=== PATIENT | male | born 1930 | race Caucasian/White ===

== ENCOUNTER 2017-08-28 06:12 | Day surgery (SDC) | payer MEDICARE, BC ==
[2017-08-28] VITALS (9 sets, daily range): BP systolic 122–144; BP diastolic 67–77; PULSE 68–78; TEMP 97.2–97.9
[~2017-08-28] VITALS: Ht 180.3 cm; Wt 88.5 kg
[2017-08-28] MEDS ORDERED: ZOCOR 20MG20 MG PO (08:54)
[2017-08-28] MEDS ORDERED: PRILOSEC 20MG20 MG PO (08:55)
[2017-08-28] MEDS ORDERED: LEVOXYL0.05 MG PO (08:55)
[2017-08-28] MEDS ORDERED: ENTRESTO 49 MG1 EACH PO (08:56)
[2017-08-28] MEDS ORDERED: K-DUR 10 MEQ T10 MEQ PO (08:57)
[2017-08-28] MEDS ORDERED: CEPHALEXIN500 M1 PO (08:58)
[2017-08-28] MEDS ORDERED: PLAVIX 75MG TAB75 MG PO (08:58)
[2017-08-28] MEDS ORDERED: LASIX 40MG TABL40 MG PO (08:59)
[2017-08-28] MEDS ORDERED: LOPRESSOR 550 MG/TAB PO (09:00)
[2017-08-28] MEDS ORDERED: ADVIL200 MG PO (09:00)
[2017-08-28] MEDS ORDERED: MULTIPLE VITAMI1 CAP PO (09:01)
[2017-08-28] MEDS ORDERED: AMOXICILLIN 50500 MG PO (13:46)
[2017-08-28] MEDS ORDERED: NORCO 325 MG-51 TAB PO (13:47)
== END 2017-08-28 14:34 | disposition home or self-care (01) ==
LOC: SDCO 06:12
DX: L02.512 Cutaneous abscess of left hand (principal); S60.552A Superficial foreign body of left hand, initial encounter
CPT/HCPCS: J0690; J1885; J2270; J2405; J2704; J3010

== ENCOUNTER → 2019-04-02 | Outpatient (CLI) | payer MEDICARE, BC ==
[~2019-04-02] MED LIST: ADVIL200 MG PO; AMOXICILLIN 50500 MG PO; CEPHALEXIN500 M1 PO; ENTRESTO 49 MG1 EACH PO; K-DUR 10 MEQ T10 MEQ PO; LASIX 40MG TABL40 MG PO; LEVOXYL0.05 MG PO; LOPRESSOR 550 MG/TAB PO; MULTIPLE VITAMI1 CAP PO; NORCO 325 MG-51 TAB PO; PLAVIX 75MG TAB75 MG PO; PRILOSEC 20MG20 MG PO; ZOCOR 20MG20 MG PO
== END ==
LOC: COL.PUL 11:00
DX: R06.02 Shortness of breath (principal)

== ENCOUNTER 2020-04-14 11:30 | Observation (INO) | payer MEDICARE, BC ==
[~2020-04-14] VITALS: Ht 180.3 cm; Wt 88.5 kg
[2020-04-14 13:46] VITALS: BP 128/38; PULSE 99; TEMP 98.1
--- NOTE | 2020-04-14 14:18 | NUR ---
PT ARRIVED TO THE FLOOR VIA DIRECT. PT WAS IN THE BATHROOM. ASSESSMENT COMPLETED. PT HAS NO WANTS OR NEEDS AT THIS TIME. PT HAS NO C/O PAIN. PT IS ON 2L O2 AT THIS TIME. VSS. WILL CONTINUE TO MONITOR.
[2020-04-14 15:45] LABS: CREATININE, serum 1.09 (0.66-1.25); MAGNESIUM 2.1 mg/dL (1.6-2.3); POTASSIUM 4.3 mmol/L (3.4-5.0)
[2020-04-14 15:53] LABS: BASO % 0.4 % (0.0-2.0); EOS # 0.2 (0.0-0.7); EOS % 2.5 % (0-4.0); GRAN % 73.9 % (42.2-75.2); HEMATOCRIT 42.8 % (42.0-52.0); HEMOGLOBIN 13.4 g/dl (13.5-18.0); LYMPH # 0.8 (1.2-3.4); LYMPH % 11.5 % (20.0-51.0); MEAN CELL VOLUME 101 fl (80.0-100.0); MEAN CORPUSCULAR HEMOGLOBIN 32 pg (27.0-31.0); MEAN CORPUSCULAR HGB CONC 31 g/dl (33.0-37.0); MEAN PLATELET VOLUME 11.5 fl (7.4-10.4); MONO # 0.8 (0.1-0.6); MONO % 11.4 % (1.7-9.3); PLATELET COUNT 169 K/mm3 (130-400); RED BLOOD COUNT 4.22 M/mm3 (4.20-5.60); REDCELL DISTRIBUTION WIDTH-CV 15.6 % (11.5-14.5)
[2020-04-14 16:02] LABS: TROPONIN-I 0.05 ng/mL (0.000-0.035)
[2020-04-14 16:03] LABS: INR 1.6 (0.8-3.0); PROTHROMBIN TIME 18.1 SECONDS (9.7-12.8)
[2020-04-14 16:15] LABS: THYROID STIMULATING HORMONE 2.11 uIU/mL (0.465-4.680)
[2020-04-14 16:34] VITALS: BP 115/65; PULSE 106; TEMP 98.5
--- NOTE | 2020-04-14 20:37 | NUR ---
REPORT GIVEN TO KAL PENA. PT RETURNED FROM [facility] AT 1855, PT VSS, REPORTS NO PAIN OR DISCOMFORT. PT WILL BE RETURNING TO [facility] TOMORROW MORNING AT 0900. NO FURTHER CONCERNS.
[2020-04-14 20:59] VITALS: BP 109/58; PULSE 90; TEMP 97.9
[2020-04-14 23:12] VITALS: BP 112/59; PULSE 90; TEMP 97.6
[2020-04-15 04:07] VITALS: BP 110/67; PULSE 77; TEMP 97.5
--- NOTE | 2020-04-15 06:00 | NUR ---
PATIENT HAS HAD AN UNEVENTFUL NIGHT. PATIENT SLEPT THROUGH THE NIGHT WITHOUT DIFFICULTIES. PATIENT IS ABLE TO USE THE URINAL IN THE BED AND HANDLED THAT FAIRLY WELL. PATIENT HAS DENIED ANY OTHER NEEDS. WILL REPORT OFF TO DAY SHIFT UPON THEIR ARRIVAL
[2020-04-15 07:43] VITALS: BP 125/63; PULSE 82; TEMP 97.3
--- NOTE | 2020-04-15 09:00 | NUR ---
Attempted to reach Dr. Fabian to clarify Eliquis dosage. No answer- will try again. Report given to nurse at [facility]. Patient dismissed per w/c van back to [place] with adoption social worker.
--- NOTE | 2020-04-15 10:45 | NUR ---
Reached Dr. Fabian per phone about Eliquis dose. Stated he will talk with [facility] to clarify dose.
--- NOTE | 2020-04-15 12:40 | NUR ---
KAL Pop at alf confirmed that Dr. Fabian talked with them.
== END 2020-04-15 09:00 ==
LOC: MEDICAL 11:30
PROVIDERS: ADMIT Internal Medicine Interventional Cardiology
DX: I48.91 Unspecified atrial fibrillation (principal); Z53.09 Procedure and treatment not carried out because of other contraindication; I51.3 Intracardiac thrombosis, not elsewhere classified; I11.0 Hypertensive heart disease with heart failure; I50.42 Chronic combined systolic (congestive) and diastolic (congestive) heart failure; E78.5 Hyperlipidemia, unspecified; I25.10 Atherosclerotic heart disease of native coronary artery without angina pectoris; I42.9 Cardiomyopathy, unspecified; Z66 Do not resuscitate; Z95.5 Presence of coronary angioplasty implant and graft; Z87.891 Personal history of nicotine dependence; Z95.810 Presence of automatic (implantable) cardiac defibrillator; Z79.02 Long term (current) use of antithrombotics/antiplatelets; Z79.899 Other long term (current) drug therapy
CPT/HCPCS: J2704

== ENCOUNTER 2020-05-05 13:08 | Day surgery (SDC) | payer MEDICARE, BC ==
[2020-05-05] VITALS (7 sets, daily range): BP systolic 111–128; BP diastolic 57–85; PULSE 62–80; TEMP 98.5
[~2020-05-05] VITALS: Ht 180.3 cm; Wt 79.4 kg
[2020-05-05 14:43] LABS: INR 3.5 (0.8-3.0); PROTHROMBIN TIME 39.1 SECONDS (9.7-12.8)
[2020-05-05 14:50] LABS: POTASSIUM 4.5 mmol/L (3.4-5.0)
[2020-05-05] MEDS ORDERED: TOPROL XL100 MG PO (15:23)
[2020-05-05] MEDS ORDERED: PROTONIX20 MG PO (15:24)
[2020-05-05] MEDS ORDERED: LIPITOR 10MG10 MG PO (15:24)
[2020-05-05 15:25] LABS: THYROID STIMULATING HORMONE 1.86 uIU/mL (0.465-4.680)
[2020-05-05] MEDS ORDERED: REMERON 15M15 MG/TA1 PO (15:25)
[2020-05-05] MEDS ORDERED: ELIQUIS 5MG PO ×2 (15:26→15:29)
[2020-05-05] MEDS ORDERED: ENTRESTO 97 MG1 EACH PO (15:26)
--- NOTE | 2020-05-05 16:00 | NUR ---
Report from Elvia BOWDEN. Transferred back from laboratory phlebotomist by bed. Sleeping at this time. VSS.
--- NOTE | 2020-05-05 17:15 | NUR ---
INT discontinued intact. Assisted to bathroom by jatin.
--- NOTE | 2020-05-05 17:45 | NUR ---
Transferred to transportation and report given to his nurse Anastacia by wc
== END 2020-05-05 17:45 | disposition home or self-care (01) ==
LOC: COL.CAR 13:08
PROVIDERS: Internal Medicine Interventional Cardiology
DX: I48.0 Paroxysmal atrial fibrillation (principal); I51.3 Intracardiac thrombosis, not elsewhere classified; I25.10 Atherosclerotic heart disease of native coronary artery without angina pectoris; I13.0 Hypertensive heart and chronic kidney disease with heart failure and stage 1 through stage 4 chronic kidney disease, or unspecified chronic kidney disease; I50.22 Chronic systolic (congestive) heart failure; N18.3 Chronic kidney disease, stage 3 (moderate); I95.9 Hypotension, unspecified; K21.9 Gastro-esophageal reflux disease without esophagitis; Z95.0 Presence of cardiac pacemaker
CPT/HCPCS: J2704

== ENCOUNTER → 2020-06-01 | Outpatient (CLI) | payer MEDICARE, BC ==
[~2020-06-01] MED LIST changes: +ELIQUIS 5MG PO; +ENTRESTO 97 MG1 EACH PO; +LIPITOR 10MG10 MG PO; +PROTONIX20 MG PO; +REMERON 15M15 MG/TA1 PO; +TOPROL XL100 MG PO
[2020-06-01 16:17] LABS: TROPONIN-I 0.057 ng/mL (0.000-0.035)
== END ==
LOC: ZCOL.LAB 14:20
PROVIDERS: Internal Medicine Interventional Cardiology
DX: R60.0 Localized edema (principal); R06.02 Shortness of breath